=== PATIENT | male | born 1980 | race Two or more races ===

== ENCOUNTER 2018-09-29 20:57 | Emergency (ER) | payer MEDICAID ==
[~2018-09-29] VITALS: Ht 177.8 cm; Wt 93.9 kg
[2018-09-29 21:39] VITALS: BP 128/78
[2018-09-29] MEDS ORDERED: LIDOCAINE 1%-EPI 1:100,000 20 ML VIAL ONE (22:11)
[2018-09-29] MEDS ORDERED: IBUPROFEN 600 MG TABLET PO ONE ×2 (22:30)
[2018-09-29] MEDS ORDERED: TDAP [DIPH/PERTUSSIS/TET] 0.5 ML VIAL IM ONE ×2 (22:30)
== END 2018-09-29 22:51 | disposition home or self-care (01) ==
LOC: ER 21:07
DX: L02.212 Cutaneous abscess of back [any part, except buttock and flank] (principal); I10 Essential (primary) hypertension; F20.0 Paranoid schizophrenia; Z88.6 Allergy status to analgesic agent
CPT/HCPCS: 10060; 90471; 90715; 99283; A4606; A6402 ×2; A6407; J3490